=== PATIENT | female | born 1965 | race Caucasian/White ===

== ENCOUNTER 2020-07-08 05:36 | Outpatient (CLI) | payer BC ==
[~2020-07-08] VITALS: Ht 162.1 cm; Wt 56.8 kg
[2020-07-08] MEDS ORDERED: OMEP20TA33 PO (10:58)
[2020-07-08] MEDS ORDERED: ESTR1TAB50 PO (10:58)
[2020-07-08] MEDS ORDERED: FAMO40TA72 PO (10:58)
== END 2020-07-08 11:19 ==
LOC: PREOP 05:36
PROVIDERS: ATTEND Obstetrics & Gynecology
DX: Z01.812 Encounter for preprocedural laboratory examination (principal); N95.0 Postmenopausal bleeding

== ENCOUNTER 2020-07-16 06:15 | Day surgery (SDC) | payer BC ==
[~2020-07-16] VITALS: Ht 162.1 cm; Wt 56.8 kg
[2020-07-16] VITALS (9 sets, daily range): BP systolic 87–121; BP diastolic 52–82
[~2020-07-16 06:15] MED LIST: ESTR1TAB50 PO; FAMO40TA72 PO; OMEP20TA33 PO
[2020-07-16] MEDS ORDERED: ONDANSETRON 4 MG/2 ML (SDV) Z0FRAN ONE ×2 (06:52→07:02)
[2020-07-16] MEDS ORDERED: LIDOCAINE PF 2% 5 ML (XYLOCAINE) VIAL ONE (07:02)
[2020-07-16] MEDS ORDERED: proPOfol 200 MG/20 ML (DIPRIVAN) VIAL IV ONE (07:02)
[2020-07-16] MEDS ORDERED: MIDAZOLAM 2 MG/2 ML (VERSED) VIAL ONE (07:02)
[2020-07-16] MEDS ORDERED: fentaNYL INJ 100 MCG/2 ML AMP ONE (07:03)
[2020-07-16] MEDS ORDERED: SEVOFLURANE (ULTANE) 15 ML INHAL SOLN ONE ×3 (07:05→07:44)
[2020-07-16] MEDS: LACTATED RINGERS 1,000 ML IV PRN ×2 (07:05→08:08)
[2020-07-16 07:11] LABS: BASOPHILS % (AUTO) 1 % (0-10); EOSINOPHILS # (AUTO) 0.1 10^3/uL (0.0-0.3); EOSINOPHILS % (AUTO) 2 % (0-10); HEMATOCRIT 39 % (35-52); HEMOGLOBIN 12.8 g/dL (11.5-16.0); LYMPHOCYTES # (AUTO) 2.3 10^3/uL (1.0-4.0); LYMPHOCYTES % (AUTO) 43 % (12-44); MEAN CORPUSCULAR HEMOGLOBIN 31 pg (25-34); MEAN CORPUSCULAR HGB CONC 33 g/dL (32-36); MEAN CORPUSCULAR VOLUME 96 fL (80-99); MONOCYTES # (AUTO) 0.3 10^3/uL (0.0-1.0); MONOCYTES % (AUTO) 6 % (0-12); NEUTROPHILS # (AUTO) 2.6 10^3/uL (1.8-7.8); NEUTROPHILS % (AUTO) 48 % (42-75); PLATELET COUNT 263 10^3/uL (130-400); WHITE BLOOD COUNT 5.4 10^3/uL (4.3-11.0)
[2020-07-16] MEDS ORDERED: ceFAZolin INJECTION 1,000 MG in WATER (STERILE) FOR INJECTION 10 ML IV ONE (07:15)
[2020-07-16] MEDS ORDERED: ONDANSETRON 4 MG/2 ML (SDV) Z0FRAN IVP ONE (07:15)
--- NOTE | 2020-07-16 07:57 | Progress Note-Pre Operative ---
Pre-Operative Progress Note H&P Reviewed The H&P was reviewed, patient examined and no changes noted. Date Seen by Provider: Jul 16, 2020 Time Seen by Provider: 07:15 Date H&P Reviewed: Jul 16, 2020 Time H&P Reviewed: 07:15 Pre-Operative Diagnosis: Postmenopausal bleeding CARLITO MARTINEZ MD Jul 16, 2020 07:57
--- NOTE | 2020-07-16 07:59 | Progress Note-Post Operative ---
Post-Operative Progess Note Surgeon (s)/Mitten Stitcher (s) Surgeon CARLITO MARTINEZ MD Mitten Stitcher: NONE Pre-Operative Diagnosis Postmenopausal bleeding Post-Operative Diagnosis Same with pathology pending Procedure & Operative Findings Date of Procedure 07/16/20 Procedure Performed/Findings Hysteroscopy with directed biopsy and D&C Anesthesia Type GETA Estimated Blood Loss Estimated blood loss (mL): Minimal Specimens/Packing Specimens Removed Directed biopsy of intrauterine mass and endometrial curettings CARLITO MARTINEZ MD Jul 16, 2020 07:59
[2020-07-16] MEDS ORDERED: fentaNYL INJ 100 MCG/2 ML AMP IVP PRN (08:00)
[2020-07-16] MEDS ORDERED: D5 LR IV SOLUTION 1,000 ML IV SCH (08:00)
[2020-07-16] MEDS ORDERED: ONDANSETRON 4 MG/2 ML (SDV) Z0FRAN IVP PRN ×2 (08:00→08:15)
[2020-07-16] MEDS ORDERED: KETOROLAC 30 MG/ML VIAL IVP ONE (08:00)
[2020-07-16] MEDS ORDERED: IBUP-1780 PO (08:03)
--- NOTE | 2020-07-16 08:04 | Discharge Inst-Surgical ---
Discharge Inst-Surgical Depart Medication/Instructions New, Converted or Re-Newed RX: RX on Chart Consults/Follow Up Patient Instructions: As directed Orders & Referrals Follow Up Appt: Call to make follow up appt. for patient in 3 weeks. Activity: Rest for 24 hours, than as tolerated. Please call in RX to patient pharmacy. Diet: As tolerated shower or tub bathe as desired. No driving for 24 hours, no alcoholic beverages for 24 hours, and nothing per vagina (no tampons, douching, or intercourse) for 2 weeks. Patient to return to the clinic as soon as possible for: Temperature greater than 101F, Severe Pain, Foul discharge from incision or vagina, Excessive Bleeding (more than a period). Activity Activity as Tolerated: No Diet Discharge Diet: No Restrictions CARLITO MARTINEZ MD Jul 16, 2020 08:04
--- NOTE | 2020-07-16 08:12 | Anesthesia-General Post-Op ---
General Patient Condition Mental Status/LOC: Same as Preop Cardiovascular: Satisfactory Nausea/Vomiting: Absent Respiratory: Satisfactory Pain: Controlled Complications: Absent Post Op Complications Complications None Follow Up Care/Instructions Patient Instructions None needed. Anesthesia/Patient Condition Patient Condition Patient is doing well, no complaints, stable vital signs, no apparent adverse anesthesia problems. No complications reported per nursing. JLUIS MORALES CRNA Jul 16, 2020 08:12
[2020-07-16] MEDS ORDERED: morphine INJ 10 MG/ML 1ML (SYR OR VIAL) IVP ONE (08:15)
[2020-07-16] MEDS ORDERED: fentaNYL INJ 100 MCG/2 ML AMP IVP ONE (08:15)
--- NOTE | 2020-07-16 12:50 | OPERATIVE REPORT ---
DATE OF SERVICE: 07/16/2020 PREOPERATIVE DIAGNOSIS: Postmenopausal bleeding. POSTOPERATIVE DIAGNOSIS: Postmenopausal bleeding. OPERATIVE PROCEDURE: Hysteroscopy with directed biopsy and D and C. OPERATIVE DESCRIPTION: With the patient in the supine position under satisfactory general anesthesia, she was repositioned in dorsal lithotomy position in the Jayme stirrups and prepped and draped in the usual fashion for vaginal surgery. Weighted speculum placed in posterior fornix of vagina, cervix exposed and grasped anteriorly with single tooth tenaculum. The uterus was sounded to 9.5 cm with uterine sound. The cervix was then serially dilated with Miller dilators to a #20 Miller and then a #9 Hegar dilator. The hysteroscope was introduced and using LR as a distending medium, the endometrial cavity was examined. There was a polypoid mass emanating from the left anterior lower uterine segment. This was biopsied directly and then removed separately with a grasping forceps. Those two specimens were sent individually to pathology. Endometrial cavity was now sharply curettaged in all 4 quadrants to good uterine cry with removal of a small amount of additional tissue. Hysteroscope was reintroduced, endometrial cavity was examined. There was no significant remaining endometrial tissue. There was no abnormal-appearing tissue and there was no bleeding. The hysteroscope was removed as was the tenaculum. There was no bleeding from the puncture sites. Sponge and needle counts were correct on completion of the procedure. There was minimal bleeding from the cervical os at the completion of the procedure. Blood loss was minimal. The patient was now uneventfully awakened from her general anesthesia and transferred to recovery room in stable condition with plans for discharge home PAR. Job ID: [id number] DocumentID: [id number] Dictated Date: 07/16/2020 08:08:02 Glass Ribbon Machine Operator Assistant Date: 07/16/2020 12:49:35 Dictated By: CARLITO MARTINEZ MD
== END 2020-07-16 09:45 | disposition home or self-care (01) ==
LOC: SDC 06:15
PROVIDERS: ATTEND Obstetrics & Gynecology
DX: N84.0 Polyp of corpus uteri (principal); K21.9 Gastro-esophageal reflux disease without esophagitis; Z80.9 Family history of malignant neoplasm, unspecified; Z79.899 Other long term (current) drug therapy
CPT/HCPCS: 36415; 85025; 87081; 88305

== ENCOUNTER → 2021-02-09 | Outpatient (CLI) | payer BC ==
[~2021-02-09] MED LIST changes: +IBUP-1780 PO
--- NOTE | 2021-02-10 14:39 | Diagnostic Imaging Report ---
Indication: Routine screening. Comparison is made with prior mammogram 02/04/2020. 2-D and 3-D bilateral screening mammography was performed with CAD. Both breasts are heterogeneously dense, limiting the sensitivity of mammography. No mass or malignant-appearing microcalcifications are seen. Overall parenchymal pattern is stable. Axillae are unremarkable. IMPRESSION: BI-RADS Category 1 No mammographic features suspicious for malignancy are identified. ACR BI-RADS Category 1: Negative. Result letter will be mailed to the patient. Note: At least 10% of breast cancer is not imaged by mammography. Dictated by: Dictated on workstation # [id number]
== END ==
LOC: RAD 13:45
PROVIDERS: ATTEND Internal Medicine
DX: Z12.31 Encounter for screening mammogram for malignant neoplasm of breast (principal)
CPT/HCPCS: 77063; 77067

== ENCOUNTER → 2022-02-10 | Outpatient (CLI) | payer BC ==
--- NOTE | 2022-02-11 10:49 | Diagnostic Imaging Report ---
INDICATION: Routine screening. Comparison is made with prior mammogram of 02/09/2021 and 02/04/2020. 2-D and 3-D bilateral screening mammography was performed with CAD. Both breasts are heterogeneously dense, limiting the sensitivity of mammography. No mass or malignant-appearing microcalcifications are seen. Axillae are unremarkable. IMPRESSION: No mammographic features suspicious for malignancy are identified. ACR BI-RADS Category 1: Negative. Result letter will be mailed to the patient. Note: At least 10% of breast cancer is not imaged by mammography. BI-RADS Category 1 Dictated by: Dictated on workstation # [id number]
== END ==
LOC: RAD 14:45
PROVIDERS: ATTEND Internal Medicine
DX: Z12.31 Encounter for screening mammogram for malignant neoplasm of breast (principal)
CPT/HCPCS: 77063; 77067